=== PATIENT | female | born 1995 | race Caucasian/White ===

== ENCOUNTER → 2017-05-06 | Outpatient (CLI) | payer OTHER | LOC: GENOP 17:47 | DX: O99.89 Other specified diseases and conditions complicating pregnancy, childbirth and the puerperium (principal); R10.2 Pelvic and perineal pain; Z3A.36 36 weeks gestation of pregnancy | CPT/HCPCS: G0463 ==

== ENCOUNTER 2017-05-28 16:22 | Inpatient (IN) | payer OTHER ==
[2017-05-28 17:29] LABS: HEMOGLOBIN 11.6 gm/dl (12.3-15.3); RED BLOOD COUNT 4.04 M/UL (4.00-5.10); WHITE BLOOD COUNT 10.9 K/UL (4.5-11.0)
[2017-05-30 06:20] LABS: HEMOGLOBIN 10.2 gm/dl (12.3-15.3)
[2017-05-31] MEDS ORDERED: NORCO 5-325 TA1 EACH PO (14:29)
== END 2017-05-31 14:00 | disposition home or self-care (01) | DRG 775 ==
LOC: GENOP 16:22 → OB 17:06
PROVIDERS: Obstetrics & Gynecology; ADMIT Obstetrics & Gynecology
PROC: 10E0XZZ Delivery of Products of Conception, External Approach (ICD-10-PCS; principal; 2017-05-29)
PROC: 10907ZC Drainage of Amniotic Fluid, Therapeutic from Products of Conception, Via Natural or Artificial Opening (ICD-10-PCS; 2017-05-29)
PROC: 0HQ9XZZ Repair Perineum Skin, External Approach (ICD-10-PCS; 2017-05-29)
PROC: 0W8NXZZ Division of Female Perineum, External Approach (ICD-10-PCS; 2017-05-29)
PROC: 0U7C7ZZ Dilation of Cervix, Via Natural or Artificial Opening (ICD-10-PCS; 2017-05-29)
PROC: 3E0P3VZ Introduction of Hormone into Female Reproductive, Percutaneous Approach (ICD-10-PCS; 2017-05-29)
DX: O76 Abnormality in fetal heart rate and rhythm complicating labor and delivery (principal); O70.9 Perineal laceration during delivery, unspecified; Z3A.39 39 weeks gestation of pregnancy; Z37.0 Single live birth; O26.893 Other specified pregnancy related conditions, third trimester; K21.9 Gastro-esophageal reflux disease without esophagitis
CPT/HCPCS: 36415; 51702; 81001; 82800; 85014; 85018; 85025; J2300; J2405; J2590; J2795; J3010; J3430; J7120

== ENCOUNTER → 2021-01-03 | Outpatient (CLI) | payer OTHER ==
[~2021-01-03] MED LIST: IBUPROFEN800 MG PO; NORCO 5-325 TA1 EACH PO; PERCOCET 5/325 T1 EA PO; PRENATAL TABLE1 EAC1 PO; SOF-LAX100 MG PO
== END ==
LOC: EXRD 14:35
DX: O26.893 Other specified pregnancy related conditions, third trimester (principal); R31.9 Hematuria, unspecified; Z3A.35 35 weeks gestation of pregnancy
CPT/HCPCS: 76775

== ENCOUNTER 2021-01-28 14:07 | Inpatient (IN) | payer OTHER ==
[~2021-01-28] VITALS: Ht 157.5 cm; Wt 65.3 kg
[~2021-01-28 14:07] MED LIST changes: -IBUPROFEN800 MG PO; -PERCOCET 5/325 T1 EA PO; -PRENATAL TABLE1 EAC1 PO; -SOF-LAX100 MG PO
[2021-01-28 18:45] LABS: HEMOGLOBIN 11.3 gm/dl (12.3-15.3); RED BLOOD COUNT 4.08 M/UL (4.00-5.10); WHITE BLOOD COUNT 11.9 K/UL (4.5-11.0)
[2021-01-28] MEDS ORDERED: PRENATAL TABLE1 EAC1 PO (18:52)
[2021-01-30 05:49] LABS: HEMOGLOBIN 9.5 gm/dl (12.3-15.3)
[2021-01-30] MEDS ORDERED: IBUPROFEN800 MG PO (14:01)
[2021-01-30] MEDS ORDERED: PERCOCET 5/325 T1 EA PO (14:01)
[2021-01-30] MEDS ORDERED: SOF-LAX100 MG PO (14:01)
== END 2021-01-30 14:34 | disposition home or self-care (01) | DRG 807 ==
LOC: GENOP 14:07 → OB 18:38
PROVIDERS: Obstetrics & Gynecology; ADMIT Obstetrics & Gynecology
PROC: 4A1HX4Z Monitoring of Products of Conception, Cardiac Electrical Activity, External Approach (ICD-10-PCS; principal; 2021-01-28)
PROC: 10E0XZZ Delivery of Products of Conception, External Approach (ICD-10-PCS; 2021-01-29)
PROC: 10907ZC Drainage of Amniotic Fluid, Therapeutic from Products of Conception, Via Natural or Artificial Opening (ICD-10-PCS; 2021-01-29)
PROC: 0HQ9XZZ Repair Perineum Skin, External Approach (ICD-10-PCS; 2021-01-29)
DX: O70.0 First degree perineal laceration during delivery (principal); Z37.0 Single live birth; Z3A.38 38 weeks gestation of pregnancy; Z20.822 Contact with and (suspected) exposure to COVID-19
CPT/HCPCS: 36415; 51702; 82800; 85014; 85018; 85025; 90715; J2405; J2590; J2795; J3010; J7120; U0002